=== PATIENT | female | born 1950 | race Caucasian/White ===

== ENCOUNTER → 2016-12-20 | Outpatient (CLI) | payer OTHER ==
[~2016-12-20] MED LIST: ASPIRIN PO; DYAZIDE 37.5/251 CAP PO; FLEXERIL10 MG PO; KEFLEX PO; LISINOPRIL20 MG PO; NAPROSYN500 MG PO; PATIENT'S PHARMACY; PREVACID15 MG PO; VICODIN 5/500 T1 TAB PO; ZOLPIDEM TARTRA10 MG PO
--- NOTE | ~2016-12-20 | MY29 ---
[facility] A Service of [facility] RADIOLOGY TEXT RESULTS PATIENT: MAXI ASHFORD LOCATION: [facility] : 48 UNIT #: [id number] AGE: [address]: Brad Parker MD SEX: F ORDER DR: [id number] [facility] [address] [place], [place] [address] [id number] MR#: [id number] Acc #: [id number] NAME: MAXI ASHFORD : 1950 SEX: F STUDY DATE/TIME: 12/20/2016 7:51 UNIT: [facility] ROOM: STUDY DESCRIPTION: MY [facility] SCREENING W/ CAD BILAT Attending Physician: Brad Parker M.D. Referring Physician: Brad Parker M.D. Ordering Physician: Brad Parker M.D. Primary Care Physician: Brad Parker M.D. MEDICAL IMAGING REPORT This report is preliminary unless electronic signature is present EXAM Digital screening mammogram 12/20/2016 HISTORY 66-year-old woman. Indicates a family history of breast cancer, however, states mother with lung cancer? Annual screen. FINDINGS Digital imaging of each breast was completed utilizing a two-view examination of each breast in craniocaudal and mediolateral-oblique projections. Review and interpretation of digital mammograms include a second review in conjunction with FDA-approved CAD device. There is a normal parenchymal presentation bilaterally consistent with the patient's age. There are no breast masses imaged and no parenchymal asymmetry is visualized. There are no suspicious microcalcifications and I see no focal architectural disturbance. Breast parenchyma is predominantly fatty replaced. IMPRESSION Negative screening digital mammogram. One year follow up recommended. Breast parenchyma is predominantly fatty replaced. Patients over the age of 40 are entered into a reminder system with target due date for the next mammogram. A result letter will also be sent to the patient. BIRADS: 1 Negative Dictated by... Venkata Balbuena M.D. [facility] A Service of [facility] RADIOLOGY TEXT RESULTS PATIENT: MAXI ASHFORD LOCATION: [facility] : 48 UNIT #: [id number] AGE: [address]: Brad Parker MD SEX: F ORDER DR: THIS IS AN ELECTRONICALLY VERIFIED REPORT Venkata Balbuena M.D. at 12/20/2016 1:19 PM Domenica TD: 12/20/2016 12:01 JOB #: [id number] MEDICAL IMAGING REPORT Page 1 of 1 COPY
== END | disposition home or self-care (01) ==
LOC: CWCC 07:28
DX: Z12.31 Encounter for screening mammogram for malignant neoplasm of breast (principal)
CPT/HCPCS: G0202